=== PATIENT | female | born 1990 | race Caucasian/White ===

== ENCOUNTER 2025-09-03 08:08 | Outpatient (CLI) | payer OTHER, SELFPAY ==
--- NOTE | 2025-09-03 08:18 | MM_ITS ---
WS: [id number] DI[facility]NOSTIC RIGHT DIGITAL BREAST TOMOSYNTHESIS MAMMOGRAPHY WITH CAD RIGHT breast ultrasound, limited HISTORY: BREAST LUMP ON L SIDE @ 10 OCLOCK POSITION COMPARISON: None available. Breast composition: There are scattered areas of fibroglandular density. Triangular marker is placed in the upper outer quadrant of the RIGHT breast near 10:00 at a mid depth. There is no underlying mass or distortion. Benign calcification in the anterior retroareolar RIGHT breast. No distortion. RIGHT breast ultrasound, limited. Ultrasound directed in the upper outer quadrant of the RIGHT breast in the palpable abnormality site. No mass or shadowing identified. MM/MM diag RT tomosynthesis [id number] IMPRESSION: BI-RADS: 2 - Benign. FOLLOW UP: Age 42 No mammographic or ultrasound abnormality in the upper outer quadrant RIGHT ravi ast.
== END 2025-09-03 08:09 | disposition home or self-care (01) ==
LOC: RAD 08:12
PROVIDERS: PCP Nurse Practitioner Family; Visit Provider Nurse Practitioner Family
DX: N63.22 Unspecified lump in the left breast, upper inner quadrant (principal); R92.1 Mammographic calcification found on diagnostic imaging of breast
CPT/HCPCS: 76642; 77061; G0279